=== PATIENT | female | born 1940 | race Caucasian/White ===

== ENCOUNTER 2023-03-09 10:57 | Observation (INO) | payer MEDICARE ==
--- NOTE | 2023-03-09 12:33 | ED ---
General Adult HPI - General Chief complaint: Weakness Stated complaint: Sepsis Time Seen by Provider: 03/09/23 12:02 Source: patient, EMS Mode of arrival: EMS Limitations: no limitations - History of Present Illness Initial comments: Dictation was produced using [employer] dictation software. please excuse any grammatical, word or spelling errors. Chief Complaint: 83-year-old female presents emergency Department with fever and constitutional symptoms History of Present Illness: Is 83-year-old female she currently receives care within the [facility]. One week ago she had debridement of chronic wound to the right lower extremity. Patient's doctors are at [facility]. There vacationing for the March weekend. Over the last 1-2 days she's been feeling weak and having symptoms of fever. Patient denies any localizing symptoms. Denies any pain complaints outside of her usual back pain and arthritis pain. Patient has extensive cardiac disease and is on multiple cardiac medications. No obvious sick contacts. Patient takes immunomodulating medications for her arthritis. The ROS documented in this emergency department record has been reviewed and confirmed by me. Those systems with pertinent positive or negative responses have been documented in the HPI. All other systems are other negative and/or noncontributory. - Related Data Home Medications Medication Instructions Recorded Confirmed Acetaminophen [Tylenol Arthritis] 650 mg PO BID 03/09/23 03/09/23 Alendronate Sodium 70 mg PO FR 03/09/23 03/09/23 Apixaban [Eliquis] 5 mg PO BID 03/09/23 03/09/23 Calcium Carbonate [Calcium] 600 mg PO DAILY 03/09/23 03/09/23 Cyanocobalamin (Vitamin B-12) 1,000 mcg PO DAILY 03/09/23 03/09/23 [Vitamin B-12] Digoxin [Digitek] 125 mcg PO DAILY 03/09/23 03/09/23 Furosemide [Lasix] 20 mg PO DAILY 03/09/23 03/09/23 HYDROcodone/APAP 7.5-325MG [[place] 1 tab PO BID PRN 03/09/23 03/09/23 7.5-325] Leucovorin Calcium 5 mg PO WE 03/09/23 03/09/23 Melatonin 5 mg PO HS 03/09/23 03/09/23 Metoprolol Tartrate [Lopressor] 75 mg PO BID 03/09/23 03/09/23 Omeprazole 20 mg PO DAILY 03/09/23 03/09/23 Pravastatin Sodium [Pravachol] 40 mg PO DAILY 03/09/23 03/09/23 Spironolactone [Aldactone] 12.5 mg PO DAILY 03/09/23 03/09/23 Verapamil HCl [Verapamil ER] 240 mg PO DAILY 03/09/23 03/09/23 Vit C/E/Zn/Coppr/Lutein/Zeaxan 1 cap PO BID 03/09/23 03/09/23 [Preservision Areds 2 Softgel] metHOTREXate sodium [Methotrexate] 20 mg PO TU 03/09/23 03/09/23 methylPREDNISolone [Medrol] 8 mg PO DAILY 03/09/23 03/09/23 oxyCODONE-APAP 5-325MG [Percocet 1 tab PO Q8H PRN 03/09/23 03/09/23 5-325 mg] Allergies Allergy/AdvReac Type Severity Reaction Status Date / Time No Known Allergies Allergy Verified 03/09/23 13:18 Review of Systems ROS Statement: Those systems with pertinent positive or pertinent negative responses have been documented in the HPI. ROS Other: All systems not noted in ROS Statement are negative. Past Medical History Past Medical History: Atrial Fibrillation, Cancer Additional Past Medical History / Comment(s): breast cancer History of Any Multi-Drug Resistant Organisms: None Reported Past Surgical History: Breast Surgery, Joint Replacement, Pacemaker Additional Past Surgical History / Comment(s): lumpectomy L breast, bilat knee replacement, bilat cataract surgery, heart valve repair Past Psychological History: No Psychological Hx Reported Smoking Status: Never smoker Past Alcohol Use History: Rare Past Drug Use History: None Reported General Exam - General Exam Comments Initial Comments: PHYSICAL EXAM: General Impression: Alert and oriented x3, not in acute distress HEENT: Normocephalic atraumatic, extra-ocular movements intact, pupils equal and reactive to light bilaterally, mucous membranes moist. Cardiovascular: Heart regular rate and rhythm Chest: Able to complete full sentences, no retractions, no tachypnea Abdomen: abdomen soft, non-tender, non-distended, no organomegaly Musculoskeletal: Pulses present and equal in all extremities, no peripheral edema Motor: no focal deficits noted Neurological: CN II-XII grossly intact, no focal motor or sensory deficits noted Skin: Dressing to the right lower extremity extending from the mid knee down to the toes with mild warmth and erythema over the knee Psych: Normal affect and mood Limitations: no limitations Course Vital Signs 03/09/23 03/09/23 03/09/23 11:04 12:05 12:52 Temperature 99.1 F Pulse Rate 144 H 139 H 99 Respiratory 18 16 18 Rate Blood Pressure 144/89 144/89 148/84 O2 Sat by Pulse 96 95 98 Oximetry 03/09/23 14:01 Temperature Pulse Rate 102 H Respiratory Rate Blood Pressure O2 Sat by Pulse Oximetry EKG Findings - EKG Comments: EKG Findings:: My EKG interpretation: Ventricular rate 14, A. fib, QRS and 1, QTc 360. No HI prolongation, no QTC prolongation, no ST or T-wave changes noted. . Overall, this EKG is unremarkable Procedures - Sepsis Sepsis Focused Exam #1 Time Sepsis Criteria Met: 14: Sepsis Focused Exam Date: 03/09/23 Sepsis Focused Exam Time: 14:25 Sepsis Focused Exam Complete: Yes Vital Signs & RN Notes Reviewed: Yes Capillary Refill: < 2 Seconds: Fingers, Toes Peripheral Pulses: Normal: Radial (R), Radial (L), Posterior Tibialis (R), Pos terior Tibialis (L), Dorsalis Pedis (R), Dorsalis Pedis (L) Skin Color: Normal for Patient Respiratory Exam: normal lung sounds Cardiovascular Exam: regular rate Medical Decision Making - Medical Decision Making Was pt. sent in by a medical professional or institution (, PA, ANIMAL WARDEN, urgent care, hospital, or chcf...) When possible be specific @ -No Did you speak to anyone other than the patient for history (EMS, parent, family, police, friend...)? What history was obtained from this source @ - at the bedside states that patient looks lethargic Did you review nursing and triage notes (agree or disagree)? Why? @ -I reviewed and agree with nursing and triage notes Were old charts reviewed (outside hosp., previous admission, EMS record, old EKG, old radiological studies, urgent care reports/EKG's, ch[facility] records)? Report findings @ -No old charts were reviewed Differential Diagnosis (chest pain, altered mental status, abdominal pain women, abdominal pain men, vaginal bleeding, musculoskeletal, weakness, fever, dyspnea, syncope, headache, dizziness, GI bleed, back pain, seizure, CVA, palpatations, mental health)? @ -Differential Fever: Pneumonia, viral URI, endocarditis, myocarditis, pericarditis, otitis, sinusitis, peritonsillar Abscess, retropharyngeal Abscess, epiglottitis, peritonitis, appendicitis, Giulia cystitis, diverticulitis, hepatitis, colitis, UTI, PID, TOA, pyelonephritis, prostatitis, epididymitis, meningitis, encephalitis, pulmonary embolism, CVA, thyroid storm, pancreatitis, adrenal crisis, cavernous sinus thrombosis, this is not meant to be an all-inclusive list. EKG interpreted by me (3pts min.). @ -See above X-rays interpreted by me (1pt min.). @ -Chest x-rays nonacute CT interpreted by me (1pt min.). @ -None done U/S interpreted by me (1pt. min.). @ -None done What testing was considered but not performed or refused? (CT, X-rays, U/S, labs)? Why? @ -None What meds were considered but not given or refused? Why? @ -None Did you discuss the management of the patient with other professionals (professionals i.e. , PA, ANIMAL WARDEN, lab, RT, psych nurse, web content & social media manager, telecommunications switch technician, teacher, correction officer city or county jail, caseworker)? Give summary @ -Case discussed with Dr. Caceres for admission Was smoking cessation discussed for >3mins.? @ -No Was critical care preformed (if so, how long)? @ -No Were there social determinants of health that impacted care today? How? (Homelessness, low income, unemployed, alcoholism, drug addiction, transportation, low edu. Level, literacy, decrease access to med. care, prison, rehab)? @ -No Was there de-escalation of care discussed even if they declined (Discuss DNR or withdrawal of care, Hospice)? DNR status @ -No What co-morbidities impacted this encounter? (DM, HTN, Smoking, COPD, CAD, Cancer, CVA, ARF, Chemo, Hep., AIDS, mental health diagnosis, sleep apnea, morbid obesity)? @ -History of methotrexate Was patient admitted / discharged? Hospital course, mention meds given and route, prescriptions, significant lab abnormalities, going to OR and other pertinent info. @ -83-year-old female with clinical presentation consistent with sepsis. She has white count of 16.2. Coag panel and metabolic panel within acceptable limits. Troponin is 0.053 likely secondary troponin leak. Patient has extensive cardiac history. Urinalysis positive for nitrites raising the suspicion of urinary tract infection. Chest x-ray shows no acute infiltrate. Clinical presentation consistent with SIRS and sepsis. Given broad-spectrum antibiotics and admitted to the hospital with consultation ID. Undiagnosed new problem with uncertain prognosis? @ -No Drug Therapy requiring intensive monitoring for toxicity (Heparin, Nitro, Insulin, Cardizem)? @ -No Were any procedures done? @ -No Diagnosis/symptom? Acute, or Chronic, or Acute on Chronic? Uncomplicated (wi thout systemic symptoms) or Complicated (systemic symptoms)? @ -1. SIRS/sepsis Side effects of treatment? @ -No Exacerbation, Progression, or Severe Exacerbation? @ -No Poses a threat to life or bodily function? How? (Chest pain, [place], [place], pneumonia, PE, COPD, DKA, ARF, appy, cholecystitis, CVA, Diverticulitis, Homicidal, Suicidal, threat to staff... and all critical care pts) @ -yes - Lab Data Result diagrams: 03/09/23 12:39 03/09/23 12:39 Lab Results 03/09/23 03/09/23 03/09/23 Range/Units 12:39 12:39 12:39 WBC 16.2 H (3.8-10.6) k/uL RBC 3.44 L (3.80-5.40) m/uL Hgb 11.4 (11.4-16.0) gm/dL Hct 35.4 (34.0-46.0) % MCV 102.7 H (80.0-100.0) fL MCH 33.2 (25.0-35.0) pg MCHC 32.3 (31.0-37.0) g/dL RDW 14.1 (11.5-15.5) % Plt Count 164 (150-450) k/uL MPV 8.3 Neutrophils % 91 % Lymphocytes % 3 % Monocytes % 5 % Eosinophils % 0 % Basophils % 0 % Neutrophils # 14.8 H (1.3-7.7) k/uL Lymphocytes # 0.5 L (1.0-4.8) k/uL Monocytes # 0.8 (0-1.0) k/uL Eosinophils # 0.0 (0-0.7) k/uL Basophils # 0.0 (0-0.2) k/uL Hypochromasia Slight Macrocytosis Slight ESR 24 H (0-20) mm/hr PT 10.7 (9.0-12.0) sec INR 1.0 (<1.2) APTT 22.2 (22.0-30.0) sec Sodium (137-145) mmol/L Potassium (3.5-5.1) mmol/L Chloride (98-107) mmol/L Carbon Dioxide (22-30) mmol/L Anion Gap mmol/L BUN (7-17) mg/dL Creatinine (0.52-1.04) mg/dL Est GFR (CKD-EPI)AfAm (>60 ml/min/1.73 sqM) Est GFR (CKD-EPI)NonAf (>60 ml/min/1.73 sqM) Glucose (74-99) mg/dL Plasma Lactic Acid Adam (0.7-2.0) mmol/L Calcium (8.4-10.2) mg/dL Magnesium (1.6-2.3) mg/dL Total Bilirubin (0.2-1.3) mg/dL AST (14-36) U/L ALT (4-34) U/L Alkaline Phosphatase (38-126) U/L Troponin I (0.000-0.034) ng/mL C-Reactive Protein (<1.0) mg/dL Total Protein (6.3-8.2) g/dL Albumin (3.5-5.0) g/dL Urine Color Light Yellow Urine Appearance Clear (Clear) Urine pH 6.5 (5.0-8.0) Ur Specific Hopkins 1.009 (1.001-1.035) Urine Protein Negative (Negative) Urine Glucose (UA) Negative (Negative) Urine Ketones Negative (Negative) Urine Blood Small H (Negative) Urine Nitrite Positive H (Negative) Urine Bilirubin Negative (Negative) Urine Urobilinogen <2.0 (<2.0) mg/dL Ur Leukocyte Esterase Negative (Negative) Urine RBC 1 (0-5) /hpf Urine WBC 1 (0-5) /hpf Ur Squamous Epith Cells <1 (0-4) /hpf Urine Mucus Rare H (None) /hpf Influenza Type A (PCR) (Not Detectd) Influenza Type B (PCR) (Not Detectd) RSV (PCR) (Not Detectd) SARS-CoV-2 (PCR) (Not Detectd) 03/09/23 03/09/23 03/09/23 Range/Units 12:39 12:39 12:39 WBC (3.8-10.6) k/uL RBC (3.80-5.40) m/uL Hgb (11.4-16.0) gm/dL Hct (34.0-46.0) % MCV (80.0-100.0) fL MCH (25.0-35.0) pg MCHC (31.0-37.0) g/dL RDW (11.5-15.5) % Plt Count (150-450) k/uL MPV Neutrophils % % Lymphocytes % % Monocytes % % Eosinophils % % Basophils % % Neutrophils # (1.3-7.7) k/uL Lymphocytes # (1.0-4.8) k/uL Monocytes # (0-1.0) k/uL Eosinophils # (0-0.7) k/uL Basophils # (0-0.2) k/uL Hypochromasia Macrocytosis ESR (0-20) mm/hr PT (9.0-12.0) sec INR (<1.2) APTT (22.0-30.0) sec Sodium 133 L (137-145) mmol/L Potassium 3.4 L (3.5-5.1) mmol/L Chloride 99 (98-107) mmol/L Carbon Dioxide 28 (22-30) mmol/L Anion Gap 6 mmol/L BUN 23 H (7-17) mg/dL Creatinine 0.59 (0.52-1.04) mg/dL Est GFR (CKD-EPI)AfAm >90 (>60 ml/min/1.73 sqM) Est GFR (CKD-EPI)NonAf 86 (>60 ml/min/1.73 sqM) Glucose 114 H (74-99) mg/dL Plasma Lactic Acid Adam 1.9 (0.7-2.0) mmol/L Calcium 8.1 L (8.4-10.2) mg/dL Magnesium 1.9 (1.6-2.3) mg/dL Total Bilirubin 0.8 (0.2-1.3) mg/dL AST 32 (14-36) U/L ALT 12 (4-34) U/L Alkaline Phosphatase 39 (38-126) U/L Troponin I 0.053 H* (0.000-0.034) ng/mL C-Reactive Protein 8.9 H (<1.0) mg/dL Total Protein 5.6 L (6.3-8.2) g/dL Albumin 3.3 L (3.5-5.0) g/dL Urine Color Urine Appearance (Clear) Urine pH (5.0-8.0) Ur Specific [place] (1.001-1.035) Urine Protein (Negative) Urine Glucose (UA) (Negative) Urine Ketones (Negative) Urine Blood (Negative) Urine Nitrite (Negative) Urine Bilirubin (Negative) Urine Urobilinogen (<2.0) mg/dL Ur Leukocyte Esterase (Negative) Urine RBC (0-5) /hpf Urine WBC (0-5) /hpf Ur Squamous Epith Cells (0-4) /hpf Urine Mucus (None) /hpf Influenza Type A (PCR) (Not Detectd) Influenza Type B (PCR) (Not Detectd) RSV (PCR) (Not Detectd) SARS-CoV-2 (PCR) (Not Detectd) 03/09/23 Range/Units 12:53 WBC (3.8-10.6) k/uL RBC (3.80-5.40) m/uL Hgb (11.4-16.0) gm/dL Hct (34.0-46.0) % MCV (80.0-100.0) fL MCH (25.0-35.0) pg MCHC (31.0-37.0) g/dL RDW (11.5-15.5) % Plt Count (150-450) k/uL MPV Neutrophils % % Lymphocytes % % Monocytes % % Eosinophils % % Basophils % % Neutrophils # (1.3-7.7) k/uL Lymphocytes # (1.0-4.8) k/uL Monocytes # (0-1.0) k/uL Eosinophils # (0-0.7) k/uL Basophils # (0-0.2) k/uL Hypochromasia Macrocytosis ESR (0-20) mm/hr PT (9.0-12.0) sec INR (<1.2) APTT (22.0-30.0) sec Sodium (137-145) mmol/L Potassium (3.5-5.1) mmol/L Chloride (98-107) mmol/L Carbon Dioxide (22-30) mmol/L Anion Gap mmol/L BUN (7-17) mg/dL Creatinine (0.52-1.04) mg/dL Est GFR (CKD-EPI)AfAm (>60 ml/min/1.73 sqM) Est GFR (CKD-EPI)NonAf (>60 ml/min/1.73 sqM) Glucose (74-99) mg/dL Plasma Lactic Acid Adam (0.7-2.0) mmol/L Calcium (8.4-10.2) mg/dL Magnesium (1.6-2.3) mg/dL Total Bilirubin (0.2-1.3) mg/dL AST (14-36) U/L ALT (4-34) U/L Alkaline Phosphatase (38-126) U/L Troponin I (0.000-0.034) ng/mL C-Reactive Protein (<1.0) mg/dL Total Protein (6.3-8.2) g/dL Albumin (3.5-5.0) g/dL Urine Color Urine Appearance (Clear) Urine pH (5.0-8.0) Ur Specific Hopkins (1.001-1.035) Urine Protein (Negative) Urine Glucose (UA) (Negative) Urine Ketones (Negative) Urine Blood (Negative) Urine Nitrite (Negative) Urine Bilirubin (Negative) Urine Urobilinogen (<2.0) mg/dL Ur Leukocyte Esterase (Negative) Urine RBC (0-5) /hpf Urine WBC (0-5) /hpf Ur Squamous Epith Cells (0-4) /hpf Urine Mucus (None) /hpf Influenza Type A (PCR) Not Detected (Not Detectd) Influenza Type B (PCR) Not Detected (Not Detectd) RSV (PCR) Not Detected (Not Detectd) SARS-CoV-2 (PCR) Not Detected (Not Detectd) Disposition Clinical Impression: SIRS (systemic inflammatory response syndrome) Disposition: ADMITTED IP TO THIS HOSP Condition: Fair Referrals: Stu Marshall MD [Primary Care Provider] - 1-2 days Decision Time: 14:06
[2023-03-09 13:05] LABS: Basophils % (A) 0 %; Eosinophils % (A) 0 %; HCT 35.4 % (34.0-46.0); HGB 11.4 gm/dL (11.4-16.0); Hypochromasia Slight; Lymphocytes # (A) 0.5 k/uL (1.0-4.8); Lymphocytes % (A) 3 %; MCH 33.2 pg (25.0-35.0); MCHC 32.3 g/dL (31.0-37.0); MCV 102.7 fL (80.0-100.0); Macrocytosis Slight; Mean Platelet Volume 8.3; Monocytes # (A) 0.8 k/uL (0-1.0); Monocytes % (A) 5 %; Neutrophils # (A) 14.8 k/uL (1.3-7.7); Neutrophils % (A) 91 %; Platelet Count 164 k/uL (150-450); RBC 3.44 m/uL (3.80-5.40); RDW 14.1 % (11.5-15.5); WBC 16.2 k/uL (3.8-10.6)
--- NOTE | 2023-03-09 13:07 | XR ---
EXAMINATION TYPE: XR chest 2V DATE OF EXAM: 03/09/2023 COMPARISON: NONE TECHNIQUE: PA and lateral views submitted. HISTORY: Fever FINDINGS: The lungs are clear and there is no pneumothorax, pleural effusion, or focal pneumonia. Heart size normal and no overt failure. Osseous structures demonstrate hypertrophic and degenerative changes of the spine. Cardiomegaly is seen. There appears to be a subcutaneous cardiac device as well as previou s cardiac surgery. Diffuse osteopenia with arthropathy of the shoulders. IMPRESSION: 1. Cardiomegaly with no acute infiltrate. Correlate for mild underlying chronic venous congestion.
[2023-03-09 13:20] LABS: Partial Thromboplastin Time 22.2 sec (22.0-30.0); Prothrombin Time 10.7 sec (9.0-12.0)
[2023-03-09 13:28] LABS: ALT 12 U/L (4-34); AST 32 U/L (14-36); African American GFR (CKD) >90 (>60 ml/min/1.73 sqM); Albumin 3.3 g/dL (3.5-5.0); Alkaline Phosphatase 39 U/L (38-126); Anion Gap 6 mmol/L; Blood Urea Nitrogen 23 mg/dL (7-17); C Reactive Protein 8.9 mg/dL (<1.0); Calcium 8.1 mg/dL (8.4-10.2); Carbon Dioxide 28 mmol/L (22-30); Chloride 99 mmol/L (98-107); Glucose 114 mg/dL (74-99); Magnesium 1.9 mg/dL (1.6-2.3); Non-African American GFR(CKD) 86 (>60 ml/min/1.73 sqM); Potassium 3.4 mmol/L (3.5-5.1); Sodium 133 mmol/L (137-145); Total Bilirubin 0.8 mg/dL (0.2-1.3); Total Protein 5.6 g/dL (6.3-8.2)
[2023-03-09 13:56] LABS: Erythrocyte Sedimentation Rate 24 mm/hr (0-20)
[2023-03-09 14:04] LABS: Appearance,Urine Clear (Clear); Bilirubin,Urine Negative (Negative); Blood,Urine Small (Negative); Color,Urine Light Yellow; Glucose,Urine (UA) Negative (Negative); Ketones,Urine Negative (Negative); Leukocyte Esterase,Urine Negative (Negative); Mucus,Urine Rare /hpf; Nitrite,Urine Positive (Negative); PH, Urine 6.5 (5.0-8.0); Protein,Urine Negative (Negative); RBC,Urine 1 /hpf (0-5); Specific Gravity,Urine 1.009 (1.001-1.035); Squamous Epithelial Cell,Urine <1 /hpf (0-4); Urobilinogen,Urine <2.0 mg/dL (<2.0); WBC,Urine 1 /hpf (0-5)
[2023-03-09] MEDS ORDERED: NALOXONE 0.4 MG/ML 1 ML VIAL IV PRN (14:19)
[2023-03-09] MEDS ORDERED: SODIUM CHLORIDE 0.9% 1,000 ML IV STA (14:25)
[2023-03-09] MEDS ORDERED: SODIUM CHLORIDE 0.9% IV STA (14:27)
[2023-03-09] MEDS ORDERED: SODIUM CHLORIDE 0.9% 1,000 ML IV SCH (14:30)
[2023-03-09] MEDS ORDERED: VANCOMYCIN IV PER PHARMACY 1 EACH MISC MISCELLANE PRN (15:52)
[2023-03-09] MEDS ORDERED: PIPERACILLIN-TAZOBACTAM 3.375 GM in SODIUM CHLORIDE 0.9% 100 ML IVPB SCH (16:00)
[2023-03-09] MEDS ORDERED: VANCOMYCIN 1,250 MG in SODIUM CHLORIDE 0.9% 250 ML IVPB ONE (16:15)
[2023-03-09] MEDS ORDERED: LIDOCAINE 2% INJ 20 MG/ML (20 ML MDV) SQ STA (16:27)
--- NOTE | 2023-03-09 16:48 | P.HPIM ---
History of Present Illness H&P Date: 03/09/23 Patient is an 83-year-old female with a history of breast cancer status post resection, atrial fibrillation, permanent pacemaker implantation who presented to the ER with complaints of generalized weakness. In the ER she underwent an extensive evaluation and vital signs showed a heart rate of 144, EKG showed atrial fibrillation. Labs were remarkable for a white blood cell count of 16.2, sodium 133, potassium 3.4, BUN 23, creatinine 0.59, glucose 114, troponin 0.053. Influenza A/B/RSV/COVID-19 PCR testing was negative. Chest x-ray showed cardiomegaly with no acute infiltrate but mild chronic underlying venous congestion. In the emergency department she was received IV fluids and was started on Zosyn. Patient seen and examined at bedside. She reports that she has been weak since yesterday and felt febrile. This morning she went to get up and just felt very weak. She was unable to move her right leg due to pain. She could not bear weight on the right leg. They decided to call EMS if she just did not appear "right". On EMS arrival she had a fever of 102.4. Patient has significant rheumatoid arthritis and follows up with rheumatology I reviewed them. She takes a biologic infusion, methotrexate, and steroids on a daily basis. Her iv therapy nurse has been concern as her inflammatory markers have been elevating and took a recent significant increase. She suffered a wound to her right lower extremity back in January and this had been unhealing. When the iv therapy nurse discovered she had a wound and increasing inflammatory markers she has the patient to follow with her PCP for workup. She was then referred to the wound care clinic and underwent debridement on 03/05 with cultures that were negative for signs of infection. Vital signs reviewed General: nontoxic, no distress, appears at stated age Derm: warm, dry Eyes: EOMI, no lid lag, anicteric sclera, pupils equal round reactive to light ENT: Nose and ears atraumatic, no thrush, no pharyngeal erythema Cardiovascular: S1S2 reg, no murmur, positive posterior tibial pulse bilateral, no edema, capillary refill less than 2 seconds Lungs: Course bs bilateral, no rhonchi, no rales, no wheeze, no accessory muscle use Abdominal: soft, nontender to palpation, no guarding, no appreciable organomeg federico, normal bowel sounds Ext: Right knee with erythema, warmth, and bogginess, patient has pain in the back of the knee when I attempt to passively flex the knee she is unable to actively flex the knee, ulnar deviation of the fingers with hypertrophy of the joints and intrinsic hand muscle wasting Neuro: CN II-XII grossly intact, muscle strength 5/5 in b/l UE and 4/5 in left LE,, Deferred in RLE due to pain. Psych: Alert, oriented, appropriate affect, slowed thinking Assessment: Probable septic arthritis of the right knee Sepsis - vanco dosing, moitor Cr and Vanco trhough - stop zosyn stat cefepime 2 g IVPB - IV fluids - check ESR and CRP - obtain last oupatient ESR and CRP - hold methotrexate and leucovorin - conitnue - Consult ortho: Discussed with CLARE Redman from [facility] and plan will be for TAP of right knee today - Consult ID - Await Blood cultures - patient is on chronic steroids at greater than 5 mg equivalent of prednisone (dexamethason 8 mg daily) and therefore should be on stress dose steroid with sepsis. Start Solu-cortef 100 mg IV TID A fib wtih RVR - improving with IV fluids -Resume patient's verapamil 240 mg daily, digoxin 125 g daily, and Lopressor 75 mg twice daily hold Eliquis 5 mg by mouth twice a day and case patient requires I&D with washout in AM. Hypertension, controlled -Hold patient's diuretics of Lasix and spironolactone due to the need of fluid resuscitation during sepsis -Continue with verapamil and Lopressor -Follow blood pressures HLD - statin Rheumatoid arthritis - hold biologic. methotrexate Imaging: As per HPI Data Review: As per HPI The patient is admitted with an anticipated greater than 2 midnight stay for evaluation of Sepsis. Surrogate decision-maker: CODE STATUS:[] DVT prophylaxis: [] Discussed with: [] Anticipated discharge date: [] Anticipated discharge place: [] This dictation was prepared using [employer] voice recognition software. Though every attempt is made to correct errors during dictation some may still exist. Past Medical History Past Medical History: Atrial Fibrillation, Cancer, Hyperlipidemia, Hypertension Additional Past Medical History / Comment(s): breast cancer History of Any Multi-Drug Resistant Organisms: None Reported Past Surgical History: Breast Surgery, Joint Replacement, Pacemaker Additional Past Surgical History / Comment(s): lumpectomy L breast, bilat knee replacement, bilat cataract surgery, heart valve repair Past Psychological History: No Psychological Hx Reported Smoking Status: Never smoker Past Alcohol Use History: Rare Past Drug Use History: None Reported Medications and Allergies Home Medications Medication Instructions Recorded Confirmed Type Acetaminophen [Tylenol Arthritis] 650 mg PO BID 03/09/23 03/09/23 History Alendronate Sodium 70 mg PO FR 03/09/23 03/09/23 History Apixaban [Eliquis] 5 mg PO BID 03/09/23 03/09/23 History Calcium Carbonate [Calcium] 600 mg PO DAILY 03/09/23 03/09/23 History Cyanocobalamin (Vitamin B-12) 1,000 mcg PO DAILY 03/09/23 03/09/23 History [Vitamin B-12] Digoxin [Digitek] 125 mcg PO DAILY 03/09/23 03/09/23 History Furosemide [Lasix] 20 mg PO DAILY 03/09/23 03/09/23 History HYDROcodone/APAP 7.5-325MG [[place] 1 tab PO BID PRN 03/09/23 03/09/23 History 7.5-325] Leucovorin Calcium 5 mg PO WE 03/09/23 03/09/23 History Melatonin 5 mg PO HS 03/09/23 03/09/23 History Metoprolol Tartrate [Lopressor] 75 mg PO BID 03/09/23 03/09/23 History Omeprazole 20 mg PO DAILY 03/09/23 03/09/23 History Pravastatin Sodium [Pravachol] 40 mg PO DAILY 03/09/23 03/09/23 History Spironolactone [Aldactone] 12.5 mg PO DAILY 03/09/23 03/09/23 History Verapamil HCl [Verapamil ER] 240 mg PO DAILY 03/09/23 03/09/23 History Vit C/E/Zn/Coppr/Lutein/Zeaxan 1 cap PO BID 03/09/23 03/09/23 History [Preservision Areds 2 Softgel] metHOTREXate sodium [Methotrexate] 20 mg PO TU 03/09/23 03/09/23 History methylPREDNISolone [Medrol] 8 mg PO DAILY 03/09/23 03/09/23 History oxyCODONE-APAP 5-325MG [Percocet 1 tab PO Q8H PRN 03/09/23 03/09/23 History 5-325 mg] Allergies Allergy/AdvReac Type Severity Reaction Status Date / Time No Known Allergies Allergy Verified 03/09/23 13:18 Physical Exam Osteopathic Statement: *. No significant issues noted on an osteopathic structural exam other than those noted in the History and Physical/Consult. Vitals: Vital Signs Temp Pulse Resp BP Pulse Ox 03/09/23 14:01 102 H 03/09/23 12:52 99 18 148/84 98 03/09/23 12:05 99.1 F 139 H 16 144/89 95 03/09/23 11:04 144 H 18 144/89 96 Intake and Output 03/09/23 03/09/23 03/09/23 06:59 14:59 22:59 Other: Weight 68.039 kg Results CBC & Chem 7: 03/09/23 12:39 03/09/23 12:39 Labs: Abnormal Lab Results - Last 24 Hours (Table) 03/09/23 03/09/23 03/09/23 Range/Units 12:39 12:39 12:39 WBC 16.2 H (3.8-10.6) k/uL RBC 3.44 L (3.80-5.40) m/uL MCV 102.7 H (80.0-100.0) fL Neutrophils # 14.8 H (1.3-7.7) k/uL Lymphocytes # 0.5 L (1.0-4.8) k/uL ESR 24 H (0-20) mm/hr Sodium 133 L (137-145) mmol/L Potassium 3.4 L (3.5-5.1) mmol/L BUN 23 H (7-17) mg/dL Glucose 114 H (74-99) mg/dL Calcium 8.1 L (8.4-10.2) mg/dL Troponin I (0.000-0.034) ng/mL C-Reactive Protein 8.9 H (<1.0) mg/dL Total Protein 5.6 L (6.3-8.2) g/dL Albumin 3.3 L (3.5-5.0) g/dL Urine Blood Small H (Negative) Urine Nitrite Positive H (Negative) Urine Mucus Rare H (None) /hpf 03/09/23 Range/Units 12:39 WBC (3.8-10.6) k/uL RBC (3.80-5.40) m/uL MCV (80.0-100.0) fL Neutrophils # (1.3-7.7) k/uL Lymphocytes # (1.0-4.8) k/uL ESR (0-20) mm/hr Sodium (137-145) mmol/L Potassium (3.5-5.1) mmol/L BUN (7-17) mg/dL Glucose (74-99) mg/dL Calcium (8.4-10.2) mg/dL Troponin I 0.053 H* (0.000-0.034) ng/mL C-Reactive Protein (<1.0) mg/dL Total Protein (6.3-8.2) g/dL Albumin (3.5-5.0) g/dL Urine Blood (Negative) Urine Nitrite (Negative) Urine Mucus (None) /hpf
[2023-03-09] MEDS ORDERED: oxyCODONE-APAP 5-325MG 1 EACH TAB PO PRN (17:01)
[2023-03-09] MEDS ORDERED: HYDROcodone/APAP 7.5-325MG 1 EACH TAB PO PRN (17:01)
[2023-03-09] MEDS ORDERED: bisacodyL 5 MG TABLET.DR PO PRN (17:04)
[2023-03-09] MEDS ORDERED: HYDROmorphone 1 MG/ML 1 ML SYRINGE IVP PRN (17:04)
[2023-03-09] MEDS ORDERED: ONDANSETRON 4 MG/2 ML VIAL IVP PRN (17:04)
[2023-03-09] MEDS: SODIUM CHLORIDE 0.9% 1,000 ML IV SCH ×2 (17:13→23:52)
--- NOTE | 2023-03-09 17:34 | P.CNOR ---
History of Present Illness - [facility] Consult date: 03/09/23 Consult reason: other (Right knee pain r/o septic knee) History of present illness: The patient is 83 y/o female with a history of a right total knee arthroplasty [address] Shields at [facility], who presented to the ER with fever, chills, ill feeling and right knee pain. She states the fever and chills started last night at the same time her right knee was very painful. She is currently in the area for the holiday and lives in [place], [place]. Upon arrival to the ER, she had a fever and tachycardia. She is on multiple immunosuppressants for rheumatoid arthritis. 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 No other issues after her joint replacement 5 years ago. The ER also diagnosed her with a UTI. Internal medicine has examined the patient and states she had extreme pain in her knee with any motion. There is a concern for septic arthritis due to her altered level immunosuppressants and her symptoms of redness and pain to the right knee, fever and tachycardia. Orthopedics was consulted for further evaluation of right knee septic arthritis vs. cellulitis. Review of Systems Constitutional: Reports chills, Reports fatigue, Reports fever Cardiovascular: Denies chest pain, Denies shortness of breath Respiratory: Denies cough Gastrointestinal: Denies diarrhea, Denies nausea, Denies vomiting Musculoskeletal: right: knee pain, knee stiffness, knee swelling Past Medical History Past Medical History: Atrial Fibrillation, Cancer, Hyperlipidemia, Hypertension Additional Past Medical History / Comment(s): breast cancer History of Any Multi-Drug Resistant Organisms: None Reported Past Surgical History: Breast Surgery, Joint Replacement, Pacemaker Additional Past Surgical History / Comment(s): lumpectomy L breast, bilat knee replacement, bilat cataract surgery, heart valve repair Past Psychological History: No Psychological Hx Reported Smoking Status: Never smoker Past Alcohol Use History: Rare Past Drug Use History: None Reported Medications and Allergies Home Medications Medication Instructions Recorded Confirmed Type Acetaminophen [Tylenol Arthritis] 650 mg PO BID 03/09/23 03/09/23 History Alendronate Sodium 70 mg PO FR 03/09/23 03/09/23 History Apixaban [Eliquis] 5 mg PO BID 03/09/23 03/09/23 History Calcium Carbonate [Calcium] 600 mg PO DAILY 03/09/23 03/09/23 History Cyanocobalamin (Vitamin B-12) 1,000 mcg PO DAILY 03/09/23 03/09/23 History [Vitamin B-12] Digoxin [Digitek] 125 mcg PO DAILY 03/09/23 03/09/23 History Furosemide [Lasix] 20 mg PO DAILY 03/09/23 03/09/23 History HYDROcodone/APAP 7.5-325MG [[place] 1 tab PO BID PRN 03/09/23 03/09/23 History 7.5-325] Leucovorin Calcium 5 mg PO WE 03/09/23 03/09/23 History Melatonin 5 mg PO HS 03/09/23 03/09/23 History Metoprolol Tartrate [Lopressor] 75 mg PO BID 03/09/23 03/09/23 History Omeprazole 20 mg PO DAILY 03/09/23 03/09/23 History Pravastatin Sodium [Pravachol] 40 mg PO DAILY 03/09/23 03/09/23 History Spironolactone [Aldactone] 12.5 mg PO DAILY 03/09/23 03/09/23 History Verapamil HCl [Verapamil ER] 240 mg PO DAILY 03/09/23 03/09/23 History Vit C/E/Zn/Coppr/Lutein/Zeaxan 1 cap PO BID 03/09/23 03/09/23 History [Preservision Areds 2 Softgel] metHOTREXate sodium [Methotrexate] 20 mg PO TU 03/09/23 03/09/23 History methylPREDNISolone [Medrol] 8 mg PO DAILY 03/09/23 03/09/23 History oxyCODONE-APAP 5-325MG [Percocet 1 tab PO Q8H PRN 03/09/23 03/09/23 History 5-325 mg] Allergies Allergy/AdvReac Type Severity Reaction Status Date / Time No Known Allergies Allergy Verified 03/09/23 13:18 Physical Examination The patient is an 83-year-old female in no acute distress. She is alert and oriented 3. During my exam she was easily falling asleep. Exam of the right lower extremity reveals a well-healed wound to the anterior knee. There is slight erythema to the anterior knee. There are chronic skin changes to the right lower leg with a golf ball-sized superficial wound with serous drainage on the dressing to the anterior lower leg. No signs of infection are noted to the wound. The patient is able to move her foot and ankle and she is able to lift her leg off the bed without significant pain at this time. She has no pain upon passive range of motion of the knee joint during my exam. Calf is soft and no ntender. Neurological and circulatory status is intact. Results No x-rays were taken at this time. - Labs Labs: Abnormal Lab Results - Last 24 Hours (Table) 03/09/23 03/09/23 03/09/23 Range/Units 12:39 12:39 12:39 WBC 16.2 H (3.8-10.6) k/uL RBC 3.44 L (3.80-5.40) m/uL MCV 102.7 H (80.0-100.0) fL Neutrophils # 14.8 H (1.3-7.7) k/uL Lymphocytes # 0.5 L (1.0-4.8) k/uL ESR 24 H (0-20) mm/hr Sodium 133 L (137-145) mmol/L Potassium 3.4 L (3.5-5.1) mmol/L BUN 23 H (7-17) mg/dL Glucose 114 H (74-99) mg/dL Calcium 8.1 L (8.4-10.2) mg/dL Troponin I (0.000-0.034) ng/mL C-Reactive Protein 8.9 H (<1.0) mg/dL Total Protein 5.6 L (6.3-8.2) g/dL Albumin 3.3 L (3.5-5.0) g/dL Urine Blood Small H (Negative) Urine Nitrite Positive H (Negative) Urine Mucus Rare H (None) /hpf 03/09/23 Range/Units 12:39 WBC (3.8-10.6) k/uL RBC (3.80-5.40) m/uL MCV (80.0-100.0) fL Neutrophils # (1.3-7.7) k/uL Lymphocytes # (1.0-4.8) k/uL ESR (0-20) mm/hr Sodium (137-145) mmol/L Potassium (3.5-5.1) mmol/L BUN (7-17) mg/dL Glucose (74-99) mg/dL Calcium (8.4-10.2) mg/dL Troponin I 0.053 H* (0.000-0.034) ng/mL C-Reactive Protein (<1.0) mg/dL Total Protein (6.3-8.2) g/dL Albumin (3.5-5.0) g/dL Urine Blood (Negative) Urine Nitrite (Negative) Urine Mucus (None) /hpf H & H 03/09/23 Range/Units 12:39 Hgb 11.4 (11.4-16.0) gm/dL Hct 35.4 (34.0-46.0) % Coagulation 03/09/23 Range/Units 12:39 INR 1.0 (<1.2) Result Diagrams: 03/09/23 12:39 03/09/23 12:39 Assessment and Plan (1) Knee pain, right Current Visit: Yes Status: Acute Code(s): M25.561 - PAIN IN RIGHT KNEE SNOMED Code(s): 4751767971 (2) History of knee replacement Current Visit: Yes Status: Acute Code(s): Z96.659 - PRESENCE OF UNSPECIFIED ARTIFICIAL KNEE JOINT SNOMED Code(s): 041287175 (3) Cellulitis Current Visit: Yes Status: Acute Code(s): L03.90 - CELLULITIS, UNSPECIFIED SNOMED Code(s): 283580220 (4) SIRS (systemic inflammatory response syndrome) Current Visit: Yes Status: Acute Code(s): R65.10 - SIRS OF NON-INFECTIOUS ORIGIN W/O ACUTE ORGAN DYSFUNCTION SNOMED Code(s): 583519831 Plan: The clinical findings were discussed with the patient and the patient's at the bedside. The case was discussed at length with Dr. Sanchez. Since the patient has no pain in the right knee at this time on exam, we will hold off on knee aspiration. We will continue to follow the patient closely during her hospital stay and we will aspirate her knee if her condition changes. This was discussed with internal medicine. Continue IV antibiotics per infectious disease. We will continue to follow patient closely and make further recommendations as needed.
[2023-03-09] MEDS: HYDROCORTISONE SUCCINATE 100 MG/2 ML VIAL IV SCH (17:48)
--- NOTE | 2023-03-09 18:49 | CT ---
EXAMINATION TYPE: CT brain wo con CT DLP: 1068.4 mGycm, Automated exposure control for dose reduction was used. DATE OF EXAM: 03/09/2023 6:19 PM COMPARISON: None. CLINICAL INDICATION:Female, 83 years old with history of right leg weakness, right leg weakness TECHNIQUE: Brain: Axial CT images of the brain were obtained with coronal and sagittal reformats created and rev iewed. Contrast used: None. Oral contrast used: None. FINDINGS: Brain: Extra-axial spaces: No abnormal extra-axial fluid collections. Ventricular system: Dilatation in proportion to cerebral atrophy. Cerebral parenchyma: Cerebral atrophy. No acute intraparenchymal hemorrhage or mass effect. The moreira -white junction is well differentiated. Scattered hypoattenuating areas are seen within the white mat ter. Cerebellum: Unremarkable. Mass effect: No evidence of midline shift. Intracranial vasculature: Atherosclerotic calcifications of the intracranial vessels. Soft tissues: Normal. Calvarium/osseous structures: No depressed skull fracture. Paranasal sinuses and mastoid air cells: Mild scattered paranasal sinus disease. Visualized orbits: Orbital contents are intact. IMPRESSION: 1. No acute intracranial process. Correlation with MRI is recommended as it is more sensitive for sma ll acute/subacute CVAs. 2. Nonspecific white matter changes, likely secondary to chronic small vessel ischemic disease.
--- NOTE | 2023-03-09 19:40 | XR ---
EXAMINATION TYPE: XR knee limited RT DATE OF EXAM: 03/09/2023 6:49 PM INDICATION: Patient age:Female; 83 years old; Reason for study: right knee pain; COMPARISON: None TECHNIQUE: The Right knee(s) was examined in Frontal, lateral and oblique projections. FINDINGS: Status post total knee arthroplasty changes with hardware in appropriate alignment and in tact. No evidence of fracture. IMPRESSION: Status post total knee arthroplasty changes with hardware intact and appropriate alignment. No fractu res identified.
[2023-03-09] MEDS: MELATONIN 5 MG TABLET PO SCH (20:30)
[2023-03-09] MEDS: CEFEPIME 2 GM in SODIUM CHLORIDE 0.9% 100 ML IVPB SCH (20:30)
[2023-03-09] MEDS: METOPROLOL TARTRATE 25 MG TAB PO SCH (20:30)
--- NOTE | 2023-03-09 22:48 | P.CONS ---
History of Present Illness - Reason for Consult Consult date: 03/09/23 sepsis Requesting physician: Rayo Sandhu - Chief Complaint Weakness and fever x one day - History of Present Illness Patient is a 83-year-old female with a past medical history significant for atrial fibrillation history of breast cancer and bilateral knee replacement patient apparently recently developed a wound on the right samuels area for the patient has been evaluated at [facility] with the area has been debrided and the patient was sent home patient presented to [facility] ER for evaluation of generalized weakness and fever has been complaining of pain to the right lower extremity describing to be more of a dull aching pain 2-3 out of 10 and no radiation did have minimal swelling redness to the right lower extremity and to the knee area, denies any history of any fall or trauma, patient on an arrival to the ER did have low-grade fever of 99.1 degrees following right patient was tachycardic did have a white count of 16.2 with a left shift creatinine was normal at 0.59 liver enzymes are normal troponin was elevated urine has been negative influenza RSV and COVID testing is negative patient did have a chest x-ray cardiomegaly with no acute infiltrate patient was given a dose of Zosyn subsequently biotic has been adjusted to vancomycin and cefepime infectious disease was consulted for further management of antibiotic therapy Review of Systems Positive point and negatives has been mentioned in the HPI, complete review of systems was performed and all other systems are negative Past Medical History Past Medical History: Atrial Fibrillation, Cancer Additional Past Medical History / Comment(s): breast cancer History of Any Multi-Drug Resistant Organisms: None Reported Past Surgical History: Breast Surgery, Joint Replacement, Pacemaker Additional Past Surgical History / Comment(s): lumpectomy L breast, bilat knee replacement, bilat cataract surgery, heart valve repair Past Psychological History: No Psychological Hx Reported Smoking Status: Never smoker Past Alcohol Use History: Rare Past Drug Use History: None Reported - Past Family History Mother Family Medical History: CVA/TIA, Myocardial Infarction ([place]) Father Family Medical History: Myocardial Infarction ([place]) Additional Family Medical History / Comment(s): DAD PASSED APPROX 40 YRS OLD MASSIVE IN Medications and Allergies Home Medications Medication Instructions Recorded Confirmed Type Acetaminophen [Tylenol Arthritis] 650 mg PO BID 03/09/23 03/09/23 History Alendronate Sodium 70 mg PO FR 03/09/23 03/09/23 History Apixaban [Eliquis] 5 mg PO BID 03/09/23 03/09/23 History Calcium Carbonate [Calcium] 600 mg PO DAILY 03/09/23 03/09/23 History Cyanocobalamin (Vitamin B-12) 1,000 mcg PO DAILY 03/09/23 03/09/23 History [Vitamin B-12] Digoxin [Digitek] 125 mcg PO DAILY 03/09/23 03/09/23 History Furosemide [Lasix] 20 mg PO DAILY 03/09/23 03/09/23 History HYDROcodone/APAP 7.5-325MG [[place] 1 tab PO BID PRN 03/09/23 03/09/23 History 7.5-325] Leucovorin Calcium 5 mg PO WE 03/09/23 03/09/23 History Melatonin 5 mg PO HS 03/09/23 03/09/23 History Metoprolol Tartrate [Lopressor] 75 mg PO BID 03/09/23 03/09/23 History Omeprazole 20 mg PO DAILY 03/09/23 03/09/23 History Pravastatin Sodium [Pravachol] 40 mg PO DAILY 03/09/23 03/09/23 History Spironolactone [Aldactone] 12.5 mg PO DAILY 03/09/23 03/09/23 History Verapamil HCl [Verapamil ER] 240 mg PO DAILY 03/09/23 03/09/23 History Vit C/E/Zn/Coppr/Lutein/Zeaxan 1 cap PO BID 03/09/23 03/09/23 History [Preservision Areds 2 Softgel] metHOTREXate sodium [Methotrexate] 20 mg PO TU 03/09/23 03/09/23 History methylPREDNISolone [Medrol] 8 mg PO DAILY 03/09/23 03/09/23 History oxyCODONE-APAP 5-325MG [Percocet 1 tab PO Q8H PRN 03/09/23 03/09/23 History 5-325 mg] Cephalexin [Keflex] 500 mg PO Q6HR 8 Days #32 cap 03/11/23 Rx Allergies Allergy/AdvReac Type Severity Reaction Status Date / Time No Known Allergies Allergy Verified 03/09/23 13:18 Physical Exam Vitals: Vital Signs Temp Pulse Resp BP Pulse Ox 03/09/23 14:01 102 H 03/09/23 12:52 99 18 148/84 98 03/09/23 12:05 99.1 F 139 H 16 144/89 95 03/09/23 11:04 144 H 18 144/89 96 Intake and Output 03/09/23 03/09/23 03/09/23 06:59 14:59 22:59 Other: Weight 68.039 kg GENERAL DESCRIPTION: Elderly female lying in bed, no distress. No tachypnea or accessory muscle of respiration use. HEENT: Shows Pallor , no scleral icterus. Oral mucous membrane is dry. NECK: Trachea central, no thyromegaly. LUNGS: Unlabored breathing. Clear to auscultation anteriorly. No wheeze or crackle. HEART: S1, S2, regular rate and rhythm. No loud murmur ABDOMEN: Soft, no tenderness , guarding or rigidity, no organomegaly EXTREMITIES: Right knee did have some swelling and redness she did have a wound on the right samuels area with no slough tissue erythema to the right foot was noticed SKIN: No rash, no masses palpable. NEUROLOGICAL: The patient is awake, alert, oriented x3, mood and affect normal. Results CBC & Chem 7: 03/10/23 06:41 03/10/23 06:41 Labs: Abnormal Lab Results - Last 24 Hours (Table) 03/09/23 03/09/23 03/09/23 Range/Units 12:39 12:39 12:39 WBC 16.2 H (3.8-10.6) k/uL RBC 3.44 L (3.80-5.40) m/uL MCV 102.7 H (80.0-100.0) fL Neutrophils # 14.8 H (1.3-7.7) k/uL Lymphocytes # 0.5 L (1.0-4.8) k/uL ESR 24 H (0-20) mm/hr Sodium 133 L (137-145) mmol/L Potassium 3.4 L (3.5-5.1) mmol/L BUN 23 H (7-17) mg/dL Glucose 114 H (74-99) mg/dL Calcium 8.1 L (8.4-10.2) mg/dL Troponin I (0.000-0.034) ng/mL C-Reactive Protein 8.9 H (<1.0) mg/dL Total Protein 5.6 L (6.3-8.2) g/dL Albumin 3.3 L (3.5-5.0) g/dL Urine Blood Small H (Negative) Urine Nitrite Positive H (Negative) Urine Mucus Rare H (None) /hpf 03/09/23 Range/Units 12:39 WBC (3.8-10.6) k/uL RBC (3.80-5.40) m/uL MCV (80.0-100.0) fL Neutrophils # (1.3-7.7) k/uL Lymphocytes # (1.0-4.8) k/uL ESR (0-20) mm/hr Sodium (137-145) mmol/L Potassium (3.5-5.1) mmol/L BUN (7-17) mg/dL Glucose (74-99) mg/dL Calcium (8.4-10.2) mg/dL Troponin I 0.053 H* (0.000-0.034) ng/mL C-Reactive Protein (<1.0) mg/dL Total Protein (6.3-8.2) g/dL Albumin (3.5-5.0) g/dL Urine Blood (Negative) Urine Nitrite (Negative) Urine Mucus (None) /hpf Assessment and Plan (1) Cellulitis Status: Acute Code(s): L03.90 - CELLULITIS, UNSPECIFIED SNOMED Code(s): 763842595 (2) Sepsis Status: Acute Code(s): A41.9 - SEPSIS, UNSPECIFIED ORGANISM SNOMED Code(s): 42794506 Plan: 1patient was in the hospital with weakness and fever in this patient with a recent history of a wound to the right lower extremity that has been debrided not developing cellulitis to right lower extremity and concern for possible septic arthritis to the right knee as the patient did have a swelling redness and warmth to the right knee area as well as to the right lower extremity and the foot area we will need to cover for both gram-positive as well as gram- negative pathogen 2-await Ortho evaluation and possible aspirate of the right knee 3-check inflammatory markers 4-continue the vancomycin and cefepime while waiting for the work-up to be completed We will follow on clinical condition and cultures to further adjust medication if needed Thank you for this consultation we will follow the patient along with you Time with Patient: Greater than 30
[2023-03-10] MEDS: HYDROCORTISONE SUCCINATE 100 MG/2 ML VIAL IV SCH ×4 (00:06→23:25)
[2023-03-10 00:36] VITALS: RESP 18
[2023-03-10] MEDS: PANTOPRAZOLE 40 MG TABLET PO SCH (06:42)
[2023-03-10 07:53] LABS: HCT 35.5 % (34.0-46.0); HGB 11.3 gm/dL (11.4-16.0); Hypochromasia Moderate; MCH 32.7 pg (25.0-35.0); MCHC 31.8 g/dL (31.0-37.0); MCV 102.8 fL (80.0-100.0); Macrocytosis Slight; Mean Platelet Volume 8.3; Platelet Count 155 k/uL (150-450); RBC 3.45 m/uL (3.80-5.40); RDW 14.1 % (11.5-15.5); WBC 13.9 k/uL (3.8-10.6)
[2023-03-10] MEDS ORDERED: VANCOMYCIN 1,250 MG in SODIUM CHLORIDE 0.9% 250 ML IVPB SCH (08:00)
[2023-03-10] MEDS: SODIUM CHLORIDE 0.9% 1,000 ML IV SCH (08:20)
[2023-03-10] MEDS: CEFEPIME 2 GM in SODIUM CHLORIDE 0.9% 100 ML IVPB SCH (08:24)
[2023-03-10] MEDS: DIGOXIN 125 MCG TAB PO SCH (08:35)
[2023-03-10] MEDS: PRAVASTATIN SODIUM 40 MG TAB PO SCH (08:35)
[2023-03-10] MEDS: VERAPAMIL SR 240 MG TABLET.ER PO SCH (08:35)
[2023-03-10] MEDS: METOPROLOL TARTRATE 25 MG TAB PO SCH ×2 (08:35→20:44)
[2023-03-10 08:36] LABS: African American GFR (CKD) >90 (>60 ml/min/1.73 sqM); Anion Gap 7 mmol/L; Blood Urea Nitrogen 13 mg/dL (7-17); Calcium 7.9 mg/dL (8.4-10.2); Carbon Dioxide 25 mmol/L (22-30); Chloride 103 mmol/L (98-107); Glucose 156 mg/dL (74-99); Non-African American GFR(CKD) >90 (>60 ml/min/1.73 sqM); Potassium 3.3 mmol/L (3.5-5.1); Sodium 135 mmol/L (137-145)
[2023-03-10 08:46] LABS: C Reactive Protein 20.3 mg/dL (<1.0)
[2023-03-10 09:02] LABS: Erythrocyte Sedimentation Rate 41 mm/hr (0-20)
--- NOTE | 2023-03-10 10:51 | P.PN ---
Subjective Progress Note Date: 03/10/23 This is an 83 year-old female who is admitted for UTI. Orthopedics is following for the right knee and concern for infection. Patient had a total knee arthroplasty 5 years ago at another facility. Patient is seen and evaluated at bedside today. Patient states that she has no pain, swelling or redness of the right knee. Patient states that she has been able to ambulate without any pain. Patient denies any new complaints today. Objective - Vital Signs Vital signs: Vital Signs Temp 97.6 F 03/10/23 04:00 Pulse 77 03/10/23 04:00 Resp 18 03/10/23 04:00 BP 138/77 03/10/23 04:00 Pulse Ox 97 03/10/23 04:00 FiO2 Intake & Output 03/09/23 03/10/23 03/10/23 18:59 06:59 18:59 Intake Total 480 Balance 480 Weight 68.039 kg 68.039 kg Intake: Oral 480 Other: Voiding Method External Catheter # Voids 1 # Bowel Movements 1 1 - Exam On exam patient is resting comfortably in bed in no acute distress. Patient is alert and oriented 3. Patient has full range of motion of the right knee without pain or difficulty. There is no significant swelling or effusion. There is no redness or ecchymosis. Calf is soft and nontender to palpation. There is a wound over the right samuels that is healing. Patient has full range of motion of the right foot and ankle. Sensation intact. Neurovascular status and circulatory status are intact. - Labs CBC & Chem 7: 03/10/23 06:41 03/10/23 06:41 Labs: Abnormal Lab Results - Last 24 Hours (Table) 03/09/23 03/09/23 03/09/23 Range/Units 12:39 12:39 12:39 WBC 16.2 H (3.8-10.6) k/uL RBC 3.44 L (3.80-5.40) m/uL Hgb (11.4-16.0) gm/dL MCV 102.7 H (80.0-100.0) fL Neutrophils # 14.8 H (1.3-7.7) k/uL Lymphocytes # 0.5 L (1.0-4.8) k/uL ESR 24 H (0-20) mm/hr Sodium 133 L (137-145) mmol/L Potassium 3.4 L (3.5-5.1) mmol/L BUN 23 H (7-17) mg/dL Creatinine (0.52-1.04) mg/dL Glucose 114 H (74-99) mg/dL Calcium 8.1 L (8.4-10.2) mg/dL Troponin I (0.000-0.034) ng/mL C-Reactive Protein 8.9 H (<1.0) mg/dL Total Protein 5.6 L (6.3-8.2) g/dL Albumin 3.3 L (3.5-5.0) g/dL Procalcitonin (0.02-0.09) ng/mL Urine Blood Small H (Negative) Urine Nitrite Positive H (Negative) Urine Mucus Rare H (None) /hpf 03/09/23 03/09/23 03/10/23 Range/Units 12:39 12:53 06:41 WBC 13.9 H (3.8-10.6) k/uL RBC 3.45 L (3.80-5.40) m/uL Hgb 11.3 L (11.4-16.0) gm/dL MCV 102.8 H (80.0-100.0) fL Neutrophils # (1.3-7.7) k/uL Lymphocytes # (1.0-4.8) k/uL ESR 41 H (0-20) mm/hr Sodium (137-145) mmol/L Potassium (3.5-5.1) mmol/L BUN (7-17) mg/dL Creatinine (0.52-1.04) mg/dL Glucose (74-99) mg/dL Calcium (8.4-10.2) mg/dL Troponin I 0.053 H* (0.000-0.034) ng/mL C-Reactive Protein (<1.0) mg/dL Total Protein (6.3-8.2) g/dL Albumin (3.5-5.0) g/dL Procalcitonin 1.68 H (0.02-0.09) ng/mL Urine Blood (Negative) Urine Nitrite (Negative) Urine Mucus (None) /hpf 03/10/23 Range/Units 06:41 WBC (3.8-10.6) k/uL RBC (3.80-5.40) m/uL Hgb (11.4-16.0) gm/dL MCV (80.0-100.0) fL Neutrophils # (1.3-7.7) k/uL Lymphocytes # (1.0-4.8) k/uL ESR (0-20) mm/hr Sodium 135 L (137-145) mmol/L Potassium 3.3 L (3.5-5.1) mmol/L BUN (7-17) mg/dL Creatinine 0.48 L (0.52-1.04) mg/dL Glucose 156 H (74-99) mg/dL Calcium 7.9 L (8.4-10.2) mg/dL Troponin I (0.000-0.034) ng/mL C-Reactive Protein 20.3 H (<1.0) mg/dL Total Protein (6.3-8.2) g/dL Albumin (3.5-5.0) g/dL Procalcitonin (0.02-0.09) ng/mL Urine Blood (Negative) Urine Nitrite (Negative) Urine Mucus (None) /hpf Assessment and Plan (1) Cellulitis Current Visit: Yes Status: Acute Code(s): L03.90 - CELLULITIS, UNSPECIFIED SNOMED Code(s): 156225749 (2) History of knee replacement Current Visit: Yes Status: Acute Code(s): Z96.659 - PRESENCE OF UNSPECIFIED ARTIFICIAL KNEE JOINT SNOMED Code(s): 649717294 Plan: Patient has no pain in the right knee and has been able to ambulate without pain or difficulty. At this time there is no concern for right knee infection. Patient states that she would like to follow up with her orthopedic surgeon in [place] once she is discharged from the hospital.
[2023-03-10] MEDS ORDERED: POTASSIUM CHLORIDE ER 20 MEQ TAB.ER PO STA (13:59)
--- NOTE | 2023-03-10 14:07 | P.PN ---
Subjective Progress Note Date: 03/10/23 Principal diagnosis: Fever/right lower extremity cellulitis Patient is a 83-year-old female with a past medical history significant for atrial fibrillation history of breast cancer and bilateral knee replacement patient apparently recently developed a wound on the right samuels area for the patient has been evaluated at [facility] , the patient presented to hospital with weakness fever and noticed to have a right lower extremity cellulitis and he was concern for possible right knee septic arthritis patient has been evaluated by orthopedics and recommending no aspirate of the right knee. On today's evaluation that is 03/10/2023, the patient denies having any fever or any chills, patient denies having any chest pain or shortness of breath or cough no pain to the right knee and overall her redness to the leg has improved Objective - Vital Signs Vital signs: Vital Signs Temp 97.4 F L 03/10/23 08:05 Pulse 80 03/10/23 08:05 Resp 18 03/10/23 08:05 BP 147/82 03/10/23 08:05 Pulse Ox 98 03/10/23 08:05 FiO2 Intake & Output 03/09/23 03/10/23 03/10/23 18:59 06:59 18:59 Intake Total 480 Balance 480 Weight 68.039 kg 68.039 kg Intake: Oral 480 Other: Voiding Method External Catheter External Catheter # Voids 1 # Bowel Movements 1 1 - Exam GENERAL DESCRIPTION: An elderly female lying in bed in no distress RESPIRATORY SYSTEM: Unlabored breathing , decreased breath sounds at bases HEART: S1 S2 regular rate and rhythm , ABDOMEN: Soft , no tenderness EXTREMITIES: Right knee and right foot redness has resolved no drainage from the right lower extremity wound - Labs CBC & Chem 7: 03/10/23 06:41 03/10/23 06:41 Labs: Abnormal Lab Results - Last 24 Hours (Table) 03/09/23 03/09/23 03/09/23 Range/Units 12:39 12:39 12:39 WBC 16.2 H (3.8-10.6) k/uL RBC 3.44 L (3.80-5.40) m/uL Hgb (11.4-16.0) gm/dL MCV 102.7 H (80.0-100.0) fL Neutrophils # 14.8 H (1.3-7.7) k/uL Lymphocytes # 0.5 L (1.0-4.8) k/uL ESR 24 H (0-20) mm/hr Sodium 133 L (137-145) mmol/L Potassium 3.4 L (3.5-5.1) mmol/L BUN 23 H (7-17) mg/dL Creatinine (0.52-1.04) mg/dL Glucose 114 H (74-99) mg/dL Calcium 8.1 L (8.4-10.2) mg/dL Troponin I (0.000-0.034) ng/mL C-Reactive Protein 8.9 H (<1.0) mg/dL Total Protein 5.6 L (6.3-8.2) g/dL Albumin 3.3 L (3.5-5.0) g/dL Procalcitonin (0.02-0.09) ng/mL Urine Blood Small H (Negative) Urine Nitrite Positive H (Negative) Urine Mucus Rare H (None) /hpf 03/09/23 03/09/23 03/10/23 Range/Units 12:39 12:53 06:41 WBC 13.9 H (3.8-10.6) k/uL RBC 3.45 L (3.80-5.40) m/uL Hgb 11.3 L (11.4-16.0) gm/dL MCV 102.8 H (80.0-100.0) fL Neutrophils # (1.3-7.7) k/uL Lymphocytes # (1.0-4.8) k/uL ESR 41 H (0-20) mm/hr Sodium (137-145) mmol/L Potassium (3.5-5.1) mmol/L BUN (7-17) mg/dL Creatinine (0.52-1.04) mg/dL Glucose (74-99) mg/dL Calcium (8.4-10.2) mg/dL Troponin I 0.053 H* (0.000-0.034) ng/mL C-Reactive Protein (<1.0) mg/dL Total Protein (6.3-8.2) g/dL Albumin (3.5-5.0) g/dL Procalcitonin 1.68 H (0.02-0.09) ng/mL Urine Blood (Negative) Urine Nitrite (Negative) Urine Mucus (None) /hpf 03/10/23 Range/Units 06:41 WBC (3.8-10.6) k/uL RBC (3.80-5.40) m/uL Hgb (11.4-16.0) gm/dL MCV (80.0-100.0) fL Neutrophils # (1.3-7.7) k/uL Lymphocytes # (1.0-4.8) k/uL ESR (0-20) mm/hr Sodium 135 L (137-145) mmol/L Potassium 3.3 L (3.5-5.1) mmol/L BUN (7-17) mg/dL Creatinine 0.48 L (0.52-1.04) mg/dL Glucose 156 H (74-99) mg/dL Calcium 7.9 L (8.4-10.2) mg/dL Troponin I (0.000-0.034) ng/mL C-Reactive Protein 20.3 H (<1.0) mg/dL Total Protein (6.3-8.2) g/dL Albumin (3.5-5.0) g/dL Procalcitonin (0.02-0.09) ng/mL Urine Blood (Negative) Urine Nitrite (Negative) Urine Mucus (None) /hpf Assessment and Plan Plan: 1patient was in the hospital with weakness and fever in this patient with a recent history of a wound to the right lower extremity that has been debrided not developing cellulitis to right lower extremity and concern for possible septic arthritis to the right knee as the patient did have a swelling redness and warmth to the right knee area as well as to the right lower extremity and the foot area we will need to cover for both gram-positive as well as gram- negative pathogen 2- Ortho evaluation no suspicious for right knee septic arthritis and recommending against aspirate of the right knee 3Patient did have elevated inflammatory markers 4-patient is feeling better wants to go home we will discontinue vancomycin and cefepime , patient started on cefazolin for right lower extremity cellulitis and if show continue improvement may be able to finish therapy with oral Keflex and this was explained in layman terms 2 the patient as well as with the admitting team Time with Patient: Less than 30
--- NOTE | 2023-03-10 14:16 | P.PN ---
Subjective Progress Note Date: 03/10/23 Hospital course: Patient is a very pleasant 83-year-old female with a past medical history of atrial fibrillation on anticoagulation, heart valve repair, pacemaker placement, rheumatoid arthritis on immunomodulators with methotrexate, a biologic infusion, and high-dose steroids on a daily basis,, and breast cancer status post surgical resection. She presented to the emergency department on 03/09/23 with complaints of generalized weakness. Patient suffered a wound to her right samuels back in January 2023 and has been managing through [facility] where she reports undergoing debridement of wound on 03/05/23 with reports of negative cultures. Patient reports since this time she has experienced increased weakness and was instructed by her PCP to come to the emergency department for evaluation. Upon arrival to the ER, patient was found to be in A. fib RVR with heart rate of 144, blood pressure 144/89, temp 99.1F, respiratory rate 18, and SpO2 of 96% on room air. EKG was completed showing atrial fibrillation with RVR 127 bpm. Chest x- ray revealing cardiomegaly negative for acute cardiopulmonary process revealing mild underlying chronic venous congestion. Labs completed showing leukocytosis with a left shift with WBC count of 16.2 neutrophils 14.8 and monocytes of 0.5. Inflammatory markers elevated with ESR of 24, CRP of 8.9, and pro-calcitonin of 1.68. Troponin also elevated at 0.053. BMP revealed mild hyponatremia with sodium of 133 and hypokalemia with potassium of 3.4. Patient was started on IV antibiotics secondary to concerns of sepsis believed to be secondary to septic arthritis of right knee, patient admitted under our services with consultation to orthopedic surgery and infectious disease. A. fib RVR was controlled and troponin decreasing from previous 0.053 down to 0.019. Blood cultures were obtained and pending results. X-ray right knee completed in radiology report stating status post total knee arthroplasty changes with hardware intact and appropriate alignment with no fractures identified and no abnormalities reported. Physical exam: Vital signs reviewed and stable. General: Nontoxic, no distress and appears stated age. Derm: Skin warm and dry, normal coloration for ethnicity. Head: Atraumatic, normocephalic and symmetric. Eyes: EOMs intact, no lid lag, and anicteric sclera Mouth: no lip lesions, mucus membranes moist Cardiovascular: regular rate and rhythm with normal S1S2, no murmur, positive posterior tibial pulses bilaterally, and cap refill < 2 seconds. Lungs: Respirations even, regular, and unlabored on room air. Lungs CTA bilaterally, no rhonchi, no rales, no wheezing, and no accessory muscle usage. Abdominal: soft, nontender to palpation, no guarding, no appreciable organomegaly Ext: ROM intact. No gross muscle atrophy, no edema, no contractures. Movement and sensation intact. Mild erythema right anterior and superficial wound right anterior lower leg with no noted drainage or erythema at this time. Neuro: Speech clear, face symmetrical and CN II-XII grossly intact with no noted focal neuro deficits Psych: Alert and oriented to person, place, time, and situation. Appropriate and pleasant affect. Assessment and Plan of Care: Probable septic arthritis of the right knee Sepsis Hypokalemia -Patient showing improvement on vancomycin and cefepime. Patient is adamant about being discharged home to follow-up with her orthopedic specialists. Discussed with infectious disease physician and vancomycin and cefepime being discontinued and patient started on cefazolin. Per infectious disease physician, If patient continues to show improvement overnight on cefazolin, she may be discharged home on oral Keflex tomorrow to follow up outpatient with her PCP and orthopedic specialists. -Morning labs reviewed. WBC count improving from 16.2 down to 13.9. ESR and CRP worsening with ESR increasing to 41 from previous 24 and CRP increasing to 20.3 from previous 8.9. Potassium 3.3. Renal function remains stable with BUN of 13, creatinine 0.48, and GFR greater than 90. -Potassium was low at 3.3 and order placed for K Dur 40 mEq 1 dose. -IV fluids discontinued. Patient may resume home diuretics with Lasix 20 mg daily and spironolactone 12.5 mg daily beginning tomorrow morning. -Continue to hold methotrexate and leucovorin -Orthopedic surgery following, Discussed plan of care with CLARE Redman from [facility] and she reports clinically patient doing better clinically recommending holding off on knee aspiration at this time. -Blood cultures pending -Patient is on chronic steroids at greater than 5 mg equivalent of prednisone (dexamethason 8 mg daily) and therefore was started on stress dose steroid with sepsis. Continue Solu-cortef 100 mg IV TID. Elevated troponin likely type II NSTEMI secondary to both sepsis and A. fib RVR A fib wtih RVR -RVR improved after IV fluid hydration -Repeat troponin decreasing from 0.053 down to 0.019. Patient asymptomatic of chest pain or discomfort, denies any cardiac complaints. Elevated troponin likely secondary to previous episode of RVR. -Continue home medication regimen with verapamil 240 mg daily, digoxin 125 g daily, and Lopressor 75 mg twice daily. -Eliquis 5 mg by mouth twice a day was resumed per recommendations of orthopedic surgery as patient does not require knee aspiration or I&D with washout. Hypertension, controlled -IV fluids discontinued. Patient may resume home diuretics with Lasix 20 mg daily and spironolactone 12.5 mg daily beginning tomorrow morning. -Continue with verapamil 240 mg daily and Lopressor 75 mg twice daily -Follow blood pressures. Vital signs reviewed. Blood pressure 147/82, heart rate 80, respiratory rate 18, SpO2 of 98% on room air and temperature 97.4F. HLD -Continue pravastatin 40 mg daily. Rheumatoid arthritis -Continue to hold biologic, methotrexate. Imaging: -X-ray right knee completed yesterday evening and reviewed radiology report this morning. X-ray report stating status post total knee arthroplasty changes with hardware intact and appropriate alignment with no fractures identified and no abnormalities reported. Data Review: -Vital signs reviewed. Blood pressure 147/82, heart rate 80, respiratory rate 18, SpO2 of 98% on room air and temperature 97.4F. -Morning labs reviewed. CBC showing WBC count improving from 16.2 down to 13.9. ESR and CRP worsening with ESR increasing to 41 from previous 24 and CRP increasing to 20.3 from previous 8.9. BMP revealing Potassium 3.3 and Renal function remains stable with BUN of 13, creatinine 0.48, and GFR greater than 90. Repeat troponin 0.019. CODE STATUS: Full code DVT prophylaxis: Eliquis Discussed with: Patient, orthopedic [employer]ACHINE [employer]ENDER, infectious disease physician, and RN Anticipated discharge date: possibly tomorrow morning Anticipated discharge place: home Patient was seen independently by Nurse Pracitioner. This document was prepared using [employer] dictation software. Please allow for errors in escrow closer, while rare they do occur. Odilon Carmen [employer]ACHINE TENDER rendered care for this patient independently, reviewed the findings and plan as documented in the note above. I did not physically speak with or examine the patient on this date. Objective - Vital Signs Vital signs: Vital Signs Temp 97.6 F 03/10/23 04:00 Pulse 77 03/10/23 04:00 Resp 18 03/10/23 04:00 BP 138/77 03/10/23 04:00 Pulse Ox 97 03/10/23 04:00 FiO2 Intake & Output 03/09/23 03/10/23 03/10/23 18:59 06:59 18:59 Weight 68.039 kg 68.039 kg Other: Voiding Method External Catheter # Voids 1 # Bowel Movements 1 - Labs CBC & Chem 7: 03/10/23 06:41 03/10/23 06:41 Labs: Abnormal Lab Results - Last 24 Hours (Table) 03/09/23 03/09/23 03/09/23 Range/Units 12:39 12:39 12:39 WBC 16.2 H (3.8-10.6) k/uL RBC 3.44 L (3.80-5.40) m/uL Hgb (11.4-16.0) gm/dL MCV 102.7 H (80.0-100.0) fL Neutrophils # 14.8 H (1.3-7.7) k/uL Lymphocytes # 0.5 L (1.0-4.8) k/uL ESR 24 H (0-20) mm/hr Sodium 133 L (137-145) mmol/L Potassium 3.4 L (3.5-5.1) mmol/L BUN 23 H (7-17) mg/dL Glucose 114 H (74-99) mg/dL Calcium 8.1 L (8.4-10.2) mg/dL Troponin I (0.000-0.034) ng/mL C-Reactive Protein 8.9 H (<1.0) mg/dL Total Protein 5.6 L (6.3-8.2) g/dL Albumin 3.3 L (3.5-5.0) g/dL Procalcitonin (0.02-0.09) ng/mL Urine Blood Small H (Negative) Urine Nitrite Positive H (Negative) Urine Mucus Rare H (None) /hpf 03/09/23 03/09/23 03/10/23 Range/Units 12:39 12:53 06:41 WBC 13.9 H (3.8-10.6) k/uL RBC 3.45 L (3.80-5.40) m/uL Hgb 11.3 L (11.4-16.0) gm/dL MCV 102.8 H (80.0-100.0) fL Neutrophils # (1.3-7.7) k/uL Lymphocytes # (1.0-4.8) k/uL ESR (0-20) mm/hr Sodium (137-145) mmol/L Potassium (3.5-5.1) mmol/L BUN (7-17) mg/dL Glucose (74-99) mg/dL Calcium (8.4-10.2) mg/dL Troponin I 0.053 H* (0.000-0.034) ng/mL C-Reactive Protein (<1.0) mg/dL Total Protein (6.3-8.2) g/dL Albumin (3.5-5.0) g/dL Procalcitonin 1.68 H (0.02-0.09) ng/mL Urine Blood (Negative) Urine Nitrite (Negative) Urine Mucus (None) /hpf
[2023-03-10] MEDS: APIXABAN 5 MG TAB PO SCH (20:44)
[2023-03-10] MEDS: MELATONIN 5 MG TABLET PO SCH (23:25)
[2023-03-11] MEDS: PANTOPRAZOLE 40 MG TABLET PO SCH (06:18)
[2023-03-11] MEDS: HYDROCORTISONE SUCCINATE 100 MG/2 ML VIAL IV SCH (08:53)
[2023-03-11] MEDS: METOPROLOL TARTRATE 25 MG TAB PO SCH (08:54)
[2023-03-11] MEDS: VERAPAMIL SR 240 MG TABLET.ER PO SCH (08:54)
[2023-03-11] MEDS: PRAVASTATIN SODIUM 40 MG TAB PO SCH (08:54)
[2023-03-11] MEDS: DIGOXIN 125 MCG TAB PO SCH (08:54)
[2023-03-11] MEDS: APIXABAN 5 MG TAB PO SCH (08:54)
[2023-03-11] MEDS ORDERED: SPIRONOLACTONE 25 MG TAB PO SCH (09:00)
[2023-03-11] MEDS ORDERED: FUROSEMIDE 20 MG TAB PO SCH (09:00)
[2023-03-11 13:37] VITALS: BP 119/66; TEMP 97.8
--- NOTE | 2023-03-11 13:53 | P.DS ---
Providers Date of admission: 03/09/23 14:19 Expected date of discharge: 03/11/23 Attending physician: Ronnie Rodriges MD Consults: 03/09/23 14:19 Consult Physician Routine Consulting Provider: Shagufta Everett Consult Reason/Comments: sepsis Do you want consulting provider notified?: Yes 03/09/23 15:51 Consult Physician Routine Consulting Provider: Nanci Sanchez Consult Reason/Comments: Spetic arthritis of the right knee Do you want consulting provider notified?: Already Contacted Primary care physician: Stu Marshall Hospital Course: Discharge Diagnosis: Cellulitis. Patient discharged home on Keflex 500 mg every 6 hours for an additional 8 days to total a treatment course of 10 days of antibiotic therapy. Patient instructed to hold methotrexate until complete samuels of antibiotic therapy and recommended to resume by PCP. Sepsis secondary to above. Hypokalemia, resolved. Elevated troponin secondary to type II NSTEMI resulting from both sepsis and episode of A. fib RVR A fib wtih RVR, resolved. Hypertension, controlled HLD. Continue pravastatin 40 mg daily. Rheumatoid arthritis, Continue to hold biologic, methotrexate until completion of antibiotic therapy. Hospital Course: Patient is a very pleasant 83-year-old female with a past medical history of atrial fibrillation on anticoagulation, heart valve repair, pacemaker placement, rheumatoid arthritis on immunomodulators with methotrexate, a biologic infusion, and high-dose steroids on a daily basis,, and breast cancer status post surgical resection. She presented to the emergency department on 03/09/23 with complaints of generalized weakness. Patient suffered a wound to her right samuels back in January 2023 and has been managing through [facility] where she reports undergoing debridement of wound on 03/05/23 with reports of negative cultures. Patient reports since this time she has experienced increased weakness and was instructed by her PCP to come to the emergency department for evaluation. Upon arrival to the ER, patient was found to be in A. fib RVR with heart rate of 144, blood pressure 144/89, temp 99.1F, respiratory rate 18, and SpO2 of 96% on room air. EKG was completed showing atrial fibrillation with RVR 127 bpm. Chest x- ray revealing cardiomegaly negative for acute cardiopulmonary process revealing mild underlying chronic venous congestion. Labs completed showing leukocytosis with a left shift with WBC count of 16.2 neutrophils 14.8 and monocytes of 0.5. Inflammatory markers elevated with ESR of 24, CRP of 8.9, and pro-calcitonin of 1.68. Troponin also elevated at 0.053. BMP revealed mild hyponatremia with sodium of 133 and hypokalemia with potassium of 3.4. Patient was started on IV antibiotics secondary to concerns of sepsis believed to be secondary to septic arthritis of right knee, patient admitted under our services with consultation to orthopedic surgery and infectious disease. A. fib RVR was controlled and troponin decreasing from previous 0.053 down to 0.019. Blood cultures were obtained and pending results. X-ray right knee completed in radiology report stating status post total knee arthroplasty changes with hardware intact and appropriate alignment with no fractures identified and no abnormalities reported. Patient showed improvement on vancomycin and cefepime and she was adamant about being discharged home to follow-up with her own doctors and orthopedic specialists. Discussed with infectious disease physician and vancomycin and cefepime was discontinued and patient started on cefazolin and monitored for an additional 24 hours. Patient continued to show improvement overnight on cefazolin, and after discussion with infectious disease physician patient being discharged home on an additional 8 days of l Keflex 500 mg every 6 hours to total a treatment course of 10 days of antibiotic therapy. Patient to follow-up follow up outpatient with her PCP and orthopedic specialists. Patient and at bedside deny any questions or concerns. Patient medically stable for discharge at this time. Patient instructed to hold methotrexate until cleared by infectious disease Physical exam: Vital signs reviewed and stable. General: Nontoxic, no distress and appears stated age. Derm: Skin warm and dry, normal coloration for ethnicity. Head: Atraumatic, normocephalic and symmetric. Eyes: EOMs intact, no lid lag, and anicteric sclera Mouth: no lip lesions, mucus membranes moist Cardiovascular: regular rate and rhythm with normal S1S2, no murmur, positive posterior tibial pulses bilaterally, and cap refill < 2 seconds. Lungs: Respirations even, regular, and unlabored on room air. Lungs CTA bilaterally, no rhonchi, no rales, no wheezing, and no accessory muscle usage. Abdominal: soft, nontender to palpation, no guarding, no appreciable organomegaly Ext: ROM intact. No gross muscle atrophy, no edema, no contractures. Movement and sensation intact. Mild erythema right anterior and superficial wound right anterior lower leg with no noted drainage or erythema at this time. Neuro: Speech clear, face symmetrical and CN II-XII grossly intact with no noted focal neuro deficits Psych: Alert and oriented to person, place, time, and situation. Appropriate and pleasant affect. A total of 34 minutes of time were spent preparing this complex discharge summary. Pt was discharged on 03/11/23 at 2:02 PM. Patient was seen independently by Nurse Practitioner. This document was prepared using [employer] dictation software. Please allow for errors in rn transport while rare they do occur. I reviewed the documentation as provided by the RICHARD above, who is the original author of this note. I agree with the documented assessment and plan, with the following changes: none Patient Condition at Discharge: Stable Plan - Discharge Summary Discharge Rx Participant: No New Discharge Prescriptions: New Cephalexin [Keflex] 500 mg PO Q6HR 8 Days #32 cap Continue oxyCODONE-APAP 5-325MG [Percocet 5-325 mg] 1 tab PO Q8H PRN PRN Reason: Severe Pain (Scale 7 To 10) HYDROcodone/APAP 7.5-325MG [[place] 7.5-325] 1 tab PO BID PRN PRN Reason: Pain Alendronate Sodium 70 mg PO FR Vit C/E/Zn/Coppr/Lutein/Zeaxan [Preservision Areds 2 Softgel] 1 cap PO BID Cyanocobalamin (Vitamin B-12) [Vitamin B-12] 1,000 mcg PO DAILY Acetaminophen [Tylenol Arthritis] 650 mg PO BID Verapamil HCl [Verapamil ER] 240 mg PO DAILY Spironolactone [Aldactone] 12.5 mg PO DAILY Metoprolol Tartrate [Lopressor] 75 mg PO BID methylPREDNISolone [Medrol] 8 mg PO DAILY metHOTREXate sodium [Methotrexate] 20 mg PO TU Melatonin 5 mg PO HS Leucovorin Calcium 5 mg PO WE Calcium Carbonate [Calcium] 600 mg PO DAILY Pravastatin Sodium [Pravachol] 40 mg PO DAILY Omeprazole 20 mg PO DAILY Furosemide [Lasix] 20 mg PO DAILY Digoxin [Digitek] 125 mcg PO DAILY Apixaban [Eliquis] 5 mg PO BID Discharge Medication List Acetaminophen [Tylenol Arthritis] 650 mg PO BID 03/09/23 [History] Alendronate Sodium 70 mg PO FR 03/09/23 [History] Apixaban [Eliquis] 5 mg PO BID 03/09/23 [History] Calcium Carbonate [Calcium] 600 mg PO DAILY 03/09/23 [History] Cyanocobalamin (Vitamin B-12) [Vitamin B-12] 1,000 mcg PO DAILY 03/09/23 [History] Digoxin [Digitek] 125 mcg PO DAILY 03/09/23 [History] Furosemide [Lasix] 20 mg PO DAILY 03/09/23 [History] HYDROcodone/APAP 7.5-325MG [[place] 7.5-325] 1 tab PO BID PRN 03/09/23 [History] Leucovorin Calcium 5 mg PO WE 03/09/23 [History] Melatonin 5 mg PO HS 03/09/23 [History] Metoprolol Tartrate [Lopressor] 75 mg PO BID 03/09/23 [History] Omeprazole 20 mg PO DAILY 03/09/23 [History] Pravastatin Sodium [Pravachol] 40 mg PO DAILY 03/09/23 [History] Spironolactone [Aldactone] 12.5 mg PO DAILY 03/09/23 [History] Verapamil HCl [Verapamil ER] 240 mg PO DAILY 03/09/23 [History] Vit C/E/Zn/Coppr/Lutein/Zeaxan [Preservision Areds 2 Softgel] 1 cap PO BID 03/09/23 [History] metHOTREXate sodium [Methotrexate] 20 mg PO TU 03/09/23 [History] methylPREDNISolone [Medrol] 8 mg PO DAILY 03/09/23 [History] oxyCODONE-APAP 5-325MG [Percocet 5-325 mg] 1 tab PO Q8H PRN 03/09/23 [History] Cephalexin [Keflex] 500 mg PO Q6HR 8 Days #32 cap 03/11/23 [Rx] Follow up Appointment(s)/Referral(s): Stu Marshall MD [Primary Care Provider] - 1-2 days (Office closed, please call tomorrow to schedule follow up appointment. ) Patient Instructions/Handouts: Cellulitis (GEN) Activity/Diet/Wound Care/Special Instructions: Activity: As tolerated. Take breaks as needed. Diet: Heart healthy and carb consistent diet. Avoid salts, or foods with hidden salts such as canned or boxed foods and frozen dinners. Extra salt makes your heart work harder and traps the fluid in your body for longer. Special Instructions: Take all of your medications as directed and remember to keep all of your doctor's appointments and follow-up as needed. As discussed, is of utmost importance to hold methotrexate until completion of your antibiotic course and advised by your PCP to resume. You will need to follow-up with your primary care doctor in 2-3 days and your orthopedic surgeon next week. Please also keep your appointment at wound care as scheduled 03/12/23. Thank you for allowing us to participate in your care, it was truly a pleasure having you for our patient!!! Discharge Disposition: HOME SELF-CARE
[2023-03-11 15:57] VITALS: PULSE 90
[2023-03-11] MEDS ORDERED: PRAVASTATIN SODIUM 40 MG TAB PO SCH (21:00)
[2023-03-12] MEDS ORDERED: VANCOMYCIN TROUGH DUE 1 EACH MISC MISCELLANE ONE (07:00)
--- NOTE | 2023-03-18 14:42 | P.PN ---
Subjective Progress Note Date: 03/11/23 Principal diagnosis: Fever/right lower extremity cellulitis Patient is a 83-year-old female with a past medical history significant for atrial fibrillation history of breast cancer and bilateral knee replacement patient apparently recently developed a wound on the right samuels area for the patient has been evaluated [facility] , the patient presented to hospital with weakness fever and noticed to have a right lower extremity cellulitis and he was concern for possible right knee septic arthritis patient has been evaluated by orthopedics and recommending no aspirate of the right knee. On today's evaluation that is 03/11/2023, the patient remains to be afebrile, patient denies having any chest pain or shortness of breath or cough , but denies pain to the right knee and right lower extremity redness has improved Objective - Vital Signs Vital signs: Vital Signs Temp 97.6 F 03/11/23 08:10 Pulse 100 03/11/23 08:10 Resp 18 03/11/23 08:10 BP 139/78 03/11/23 08:10 Pulse Ox 97 03/11/23 08:10 FiO2 Intake & Output 03/10/23 03/11/23 03/11/23 18:59 06:59 18:59 Intake Total 710 660 Output Total 900 Balance 710 -900 660 Intake: Oral 710 660 Output: Urine 900 Other: Voiding Method External Catheter Toilet Toilet External Catheter External Catheter # Voids 1 # Bowel Movements 1 - Exam GENERAL DESCRIPTION: An elderly female lying in bed in no distress RESPIRATORY SYSTEM: Unlabored breathing , decreased breath sounds at bases HEART: S1 S2 regular rate and rhythm , ABDOMEN: Soft , no tenderness EXTREMITIES: Right knee and right foot redness has resolved no drainage from the right lower extremity wound - Labs CBC & Chem 7: 03/10/23 06:41 03/10/23 06:41 Labs: Microbiology - Last 24 Hours (Table) 03/09/23 14:50 Blood Culture - Preliminary Blood 03/09/23 12:39 Blood Culture - Preliminary Blood Assessment and Plan (1) Cellulitis Status: Acute Code(s): L03.90 - CELLULITIS, UNSPECIFIED SNOMED Code(s): 672958639 Plan: 1patient was in the hospital with weakness and fever in this patient with a recent history of a wound to the right lower extremity that has been debrided not developing cellulitis to right lower extremity and concern for possible septic arthritis to the right knee as the patient did have a swelling redness a nd warmth to the right knee area as well as to the right lower extremity and the foot area we will need to cover for both gram-positive as well as gram-negative pathogen 2- Ortho evaluation no suspicious for right knee septic arthritis and recommending against aspirate of the right knee 3Patient did have elevated inflammatory markers 4-patient did have improvement of the right lower extremity cellulitis and blood culture has been negative plan is to finish therapy with oral Keflex and close outpatient follow-up patient has been advised if any recurrence of redness or fever to let us know right away Time with Patient: Less than 30
== END 2023-03-11 16:13 | disposition home or self-care (01) ==
LOC: EC 10:57 → INTOOBSV 14:19 → 4SSUR 14:19 → 3SCARD 20:06 → UNDODISIN 03-11 16:13
PROVIDERS: ADMIT Internal Medicine; ATTEND Internal Medicine
DX: L03.115 Cellulitis of right lower limb (principal); I21.A1 Myocardial infarction type 2; A41.9 Sepsis, unspecified organism; E87.6 Hypokalemia; E87.1 Hypo-osmolality and hyponatremia; N39.0 Urinary tract infection, site not specified; M85.812 Other specified disorders of bone density and structure, left shoulder; M85.811 Other specified disorders of bone density and structure, right shoulder; M12.812 Other specific arthropathies, not elsewhere classified, left shoulder; I48.91 Unspecified atrial fibrillation; M12.811 Other specific arthropathies, not elsewhere classified, right shoulder; M06.9 Rheumatoid arthritis, unspecified; I11.9 Hypertensive heart disease without heart failure; E78.5 Hyperlipidemia, unspecified; I67.2 Cerebral atherosclerosis; Z79.899 Other long term (current) drug therapy; Z79.01 Long term (current) use of anticoagulants; Z85.3 Personal history of malignant neoplasm of breast; Z96.653 Presence of artificial knee joint, bilateral; Z95.0 Presence of cardiac pacemaker; Z98.42 Cataract extraction status, left eye; Z98.41 Cataract extraction status, right eye; Z20.822 Contact with and (suspected) exposure to COVID-19; Z79.52 Long term (current) use of systemic steroids; Z82.49 Family history of ischemic heart disease and other diseases of the circulatory system; Z82.3 Family history of stroke; Z90.12 Acquired absence of left breast and nipple
CPT/HCPCS: 96376 ×3; 96361 ×3; 96365 ×2; 96366 ×3; 96368; 96360; 96367; 96375; 99285; 36415; 93005; 80053; 80048; 85652 ×2; 83605; 83735; 84484 ×2; 85025; 85027; 85610; 85730; 86140 ×2; 81001; 87040; 84145; 87636; 73560; 71046; 70450; G0378 ×3; J2001; J3370 ×2; J1720 ×3; J0690 ×2; J0692 ×2